=== PATIENT | female | born 1965 | race Caucasian/White ===

== ENCOUNTER 2023-07-01 18:04 | Emergency (ER) | payer OTHER ==
[~2023-07-01] VITALS: Ht 175.3 cm; Wt 102.1 kg
[2023-07-01 18:12] VITALS: BP 155/85; PULSE 81; RESP 20; TEMP 98; O2SAT 94
[2023-07-01] MEDS ORDERED: IBUP-1842 PO (18:22)
[2023-07-01 18:41] VITALS: BP 155/85; PULSE 81; RESP 20; TEMP 98; O2SAT 94
== END 2023-07-01 18:42 | disposition home or self-care (01) ==
LOC: MED 18:04
DX: S80.02XA Contusion of left knee, initial encounter (principal); E11.9 Type 2 diabetes mellitus without complications; Z79.1 Long term (current) use of non-steroidal anti-inflammatories (NSAID); W01.0XXA Fall on same level from slipping, tripping and stumbling without subsequent striking against object, initial encounter; Y92.89 Other specified places as the place of occurrence of the external cause; Y93.89 Activity, other specified; Y99.8 Other external cause status
CPT/HCPCS: 99282